=== PATIENT | male | born 1955 | race African-American/Black ===

== ENCOUNTER 2023-01-10 07:31 | Emergency (ER) | payer OTHER, MEDICARE | END 2023-01-10 08:50 | disposition home or self-care (01) | LOC: ERS 07:31 | DX: S16.1XXA Strain of muscle, fascia and tendon at neck level, initial encounter (principal); I10 Essential (primary) hypertension; E78.5 Hyperlipidemia, unspecified; V49.40XA Driver injured in collision with unspecified motor vehicles in traffic accident, initial encounter; Z79.899 Other long term (current) drug therapy | CPT/HCPCS: 72125 ==